=== PATIENT | female | born 1950 | race African-American/Black ===

== ENCOUNTER 2018-02-16 14:34 | Observation (INO) ==
[2018-02-16] MEDS ORDERED: methylPREDNISolone 125 MG/2 ML VIAL IVP ONE (14:38)
--- NOTE | 2018-02-16 14:40 | Emergency Department Note ---
Disposition Clinical Impression: Chest pain Disposition: Admitted As Inpatient Condition: Good General Adult HPI - General Stated complaint: CP Time Seen by Provider: 02/16/18 14:38 Nursing Notes Reviewed: Yes Vital Signs Reviewed: Yes - Related Data Home Medications Medication Instructions Recorded Confirmed ALPRAZolam [Xanax 1 MG Tablet] 1 mg PO TID PRN 02/16/18 02/16/18 Albuterol Neb [Proventil Neb] 2.5 mg IH Q4H PRN 02/16/18 02/16/18 Albuterol Sulfate [Proair Hfa] 2 puff IH Q4H PRN 02/16/18 02/16/18 Budesonide/Formoterol 160/4.5 2 puff IH BID 02/16/18 02/16/18 [Symbicort 160/4.5] Cetirizine HCl [Zyrtec] 10 mg PO DAILY PRN 02/16/18 02/16/18 Levothyroxine [Synthroid] 112 mcg PO 0630 02/16/18 02/16/18 Montelukast [Singulair] 10 mg PO DAILY 02/16/18 02/16/18 Omeprazole [PriLOSEC] 40 mg PO DAILY 02/16/18 02/16/18 Pravastatin Sodium [Pravachol] 40 mg PO HS 02/16/18 02/16/18 SUMAtriptan succinate [Imitrex] 50 mg PO Q2H PRN 02/16/18 02/16/18 Sertraline [Zoloft] 200 mg PO DAILY 02/16/18 02/16/18 Spironolactone [Aldactone] 25 mg PO DAILY 02/16/18 02/16/18 Vit A/Vit C/Vit E/Zinc/Copper 1 tab PO DAILY 02/16/18 02/16/18 [Preservision Areds Tablet] Allergies Allergy/AdvReac Type Severity Reaction Status Date / Time No Known Allergies Allergy Verified 06/18/15 08:04 Past Medical History - Past Medical History Medical history: Reports: arthritis, asthma, GERD, thyroid disease Surgical history: Reports: breast surgery Psychiatric history: Reports: anxiety - Social History Smoking Status: Former smoker Smokeless Tobacco Status: No Alcohol use: Reports: none Drug use: Reports: none Course Vital Signs Temperature 98.0 F 02/16/18 14:40 Pulse Rate 78 02/16/18 14:40 Respiratory Rate 18 02/16/18 14:40 Blood Pressure 140/71 02/16/18 14:40 O2 Sat by Pulse Oximetry 100 02/16/18 14:40 Temperature 97.9 F 02/16/18 18:58 Pulse Rate 68 02/16/18 18:58 Respiratory Rate 17 02/16/18 18:58 Blood Pressure 155/77 02/16/18 18:58 O2 Sat by Pulse Oximetry 98 02/16/18 18:58 Oxygen Delivery Oxygen Delivery Room Air Medical Decision Making - MDM Narrative Medical decision making narrative: This documentation is done with the assistance of Dragon dictation. Despite efforts made to ensure accuracy, there may be inaccuracies in indian blanket weaver or spelling and typographical errors. Patient presents today after having heartburn she says which she typically gets. She said that then she started having an asthma attack. They called medics like started her on breathing treatment and she is feeling better she several of her wheezing. We will do a cardiac workup on her determine if she needs another breathing treatment started on some steroids and reassess. She is in agreement with this plan. 1554 hrs.: Patient's chest x-rays back labs are back doing better remembering for chest pain rule out ACS. She is in agreement with this plan. Chest X-Ray 02/16/18 14:38 IMPRESSION: No acute process. D/ / Tiago Cotton MD / Tiago Cotton MD Interpreting Provider: Tiago Cotton MD - Lab Data Result diagrams: 02/16/18 15:07 02/16/18 15:07 Lab Results 02/16/18 02/16/18 Range/Units 15:07 15:07 WBC 6.0 (4.3-11.1) K/mcL RBC 4.21 (3.82-4.97) M/mcL Hgb 12.1 (11.5-15.4) g/dL Hct 36.3 (35.3-44.9) % MCV 86.2 (83.0-100.0) fL MCH 28.7 (28.0-33.3) pg MCHC 33.3 (31.6-35.5) g/dL RDW 14.1 (11.5-14.5) % Plt Count 184 (140-400) K/mcL MPV 9.7 (9.4-12.4) fL Immature Gran % 0.2 (0-4) % Seg Neutrophils % 29.4 % Lymphocytes % 60.0 % Monocytes % 8.7 % Eosinophils % 1.2 % Basophils % 0.5 % Neutrophils # 1.8 (1.6-8.9) K/mcL Lymphocytes # 3.6 (0.6-4.6) K/mcL Monocytes # 0.5 (0.0-1.3) K/mcL Eosinophils # 0.1 (0.0-0.6) K/mcL Basophils # 0.0 (0.0-0.2) K/mcL Sodium 141 (136-145) mEq/L Potassium 3.4 L (3.5-5.1) mEq/L Chloride 110 H (98-107) mEq/L Carbon Dioxide 23 (23-29) mEq/L BUN 13 (8-23) mg/dL Creatinine 0.84 (0.60-1.20) mg/dL Est GFR ( Amer) > 60 (> 60) Est GFR (Non-Af Amer) > 60 (> 60) BUN/Creatinine Ratio 15 (6-26) Glucose 99 (70-105) mg/dL Calculated Osmolality 292 (280-300) Calcium 9.5 (8.6-10.3) mg/dL Total Bilirubin 0.3 (0.3-1.0) mg/dL AST 23 (13-39) Units/L ALT 15 (7-52) Units/L Alkaline Phosphatase 72 (34-104) Units/L Troponin I < 0.03 (< 0.04) ng/mL Serum Total Protein 7.1 (6.4-8.9) g/dL Albumin 4.2 (3.5-5.7) g/dL Globulin 2.9 (2.4-3.5) g/dL Albumin/Globulin Ratio 1.4 (1.1-2.2) Attestation Statement - Attestation Attestation: I examined this patient and my medical decision-making was reviewed with the Resident Physician. I agree with the documented findings, disposition and treatment plan as described except to the extent set forth below. Patient seen and evaluated on arrival with EMS and Dr. Traore, I agree with her evaluation and treatment plan, I supervised the care the patient's stay.
[2018-02-16] MEDS ORDERED: Ondansetron 4 MG/2 ML VIAL IVP ONE (14:50)
[2018-02-16] MEDS: GI Cocktail 40 ML EACH PO ONE (15:16)
[2018-02-16 15:31] LABS: Basophils % 0.5 %; Eosinophils # 0.1 K/mcL (0.0-0.6); Eosinophils % 1.2 %; Hematocrit 36.3 % (35.3-44.9); Hemoglobin 12.1 g/dL (11.5-15.4); Immature Granulocytes % 0.2 % (0-4); Lymphocytes # 3.6 K/mcL (0.6-4.6); Mean Corpuscular HGB Conc 33.3 g/dL (31.6-35.5); Mean Corpuscular Hemoglobin 28.7 pg (28.0-33.3); Mean Corpuscular Volume 86.2 fL (83.0-100.0); Mean Platelet Volume 9.7 fL (9.4-12.4); Monocytes # 0.5 K/mcL (0.0-1.3); Monocytes % 8.7 %; Neutrophils # 1.8 K/mcL (1.6-8.9); Platelet Count 184 K/mcL (140-400); Red Blood Count 4.21 M/mcL (3.82-4.97); Red Cell Distribution Width 14.1 % (11.5-14.5); Segmented Neutrophils % 29.4 %
[2018-02-16 15:44] LABS: Alanine Aminotransferase 15 Units/L (7-52); Albumin 4.2 g/dL (3.5-5.7); Albumin/Globulin Ratio 1.4 (1.1-2.2); Alkaline Phosphatase 72 Units/L (34-104); Aspartate Amino Transferase 23 Units/L (13-39); BUN/Creatinine Ratio 15 (6-26); Bilirubin,Total 0.3 mg/dL (0.3-1.0); Blood Urea Nitrogen 13 mg/dL (8-23); Calcium 9.5 mg/dL (8.6-10.3); Carbon Dioxide 23 mEq/L (23-29); Chloride 110 mEq/L (98-107); Globulin 2.9 g/dL (2.4-3.5); Glucose 99 mg/dL (70-105); Osmolality,Calculated 292 (280-300); Potassium 3.4 mEq/L (3.5-5.1); Sodium 141 mEq/L (136-145); Total Protein 7.1 g/dL (6.4-8.9); Troponin I < 0.03 ng/mL (< 0.04); eGFR For African Americans > 60 (> 60); eGFR For Non-African Americans > 60 (> 60)
--- NOTE | 2018-02-16 15:45 | Emergency Department Note ---
Disposition Clinical Impression: Chest pain Qualifiers: Chest pain type: unspecified Qualified Code(s): R07.9 - Chest pain, unspecified Disposition: Admitted As Inpatient Condition: Good Referrals: Milad Enciso MD [Primary Care Provider] - Time of Disposition: 16:36 Chest Pain HPI - General Chief Complaint: ED Chest Pain Stated Complaint: CP Time Seen by Provider: 02/16/18 14:38 Source: patient, EMS Limitations: no limitations Vital Signs Reviewed: Yes Nursing Notes Reviewed: Yes - History of Present Illness HPI Narrative: Female patient complaining of excessive burping. Started having chest pain earlier today. Woke up with a headache. This subsequently went away. After she took a nap she woke up nauseated and broke burping more. Did have one episode of emesis. No fevers or chills. Does have a aching sensation in the center of her chest. No radiation. No shortness of breath. Severity scale (1-10): 8 - Related Data Home Medications Medication Instructions Recorded Confirmed ALPRAZolam [Xanax 1 MG Tablet] 1 mg PO TID PRN 02/16/18 02/16/18 Albuterol Neb [Proventil Neb] 2.5 mg IH Q4H PRN 02/16/18 02/16/18 Albuterol Sulfate [Proair Hfa] 2 puff IH Q4H PRN 02/16/18 02/16/18 Budesonide/Formoterol 160/4.5 2 puff IH BID 02/16/18 02/16/18 [Symbicort 160/4.5] Cetirizine HCl [Zyrtec] 10 mg PO DAILY PRN 02/16/18 02/16/18 Levothyroxine [Synthroid] 112 mcg PO 0630 02/16/18 02/16/18 Montelukast [Singulair] 10 mg PO DAILY 02/16/18 02/16/18 Omeprazole [PriLOSEC] 40 mg PO DAILY 02/16/18 02/16/18 Pravastatin Sodium [Pravachol] 40 mg PO HS 02/16/18 02/16/18 SUMAtriptan succinate [Imitrex] 50 mg PO Q2H PRN 02/16/18 02/16/18 Sertraline [Zoloft] 200 mg PO DAILY 02/16/18 02/16/18 Spironolactone [Aldactone] 25 mg PO DAILY 02/16/18 02/16/18 Vit A/Vit C/Vit E/Zinc/Copper 1 tab PO DAILY 02/16/18 02/16/18 [Preservision Areds Tablet] Allergies Allergy/AdvReac Type Severity Reaction Status Date / Time No Known Allergies Allergy Verified 06/18/15 08:04 All systems ED: reviewed and negative except as stated. Constitutional: Denies: fever, chills ENT ED: Denies: congestion Cardiovascular: Reports: chest pain (Aching sensation in the center of her chest.). Denies: palpitations, syncope Respiratory: Reports: wheezes (Prior to arrival. After vomiting she had an episode of wheezing she believes is associated with her asthma.). Denies: cough , dyspnea Gastrointestinal: Reports: nausea, vomiting (One episode earlier today). Denies : abdominal pain, diarrhea, hematemesis, melena, hematochezia Genitourinary: Denies: urgency, dysuria, frequency, hematuria Musculoskeletal: Denies: back pain, neck pain Integumentary: Denies: rash, abrasion Neurological: Denies: headache, weakness Chest Pain PMH - Past Medical History Medical history: Reports: arthritis, asthma, GERD, thyroid disease Surgical history: Reports: breast surgery Psychiatric history: Reports: anxiety - Social History Smoking Status: Former smoker Alcohol use: Reports: none Drug use: Reports: none Physical Exam - General Limitations: no limitations General appearance: alert, in no apparent distress - Head Head exam: atraumatic, normocephalic, normal inspection - Eye Eye exam: Present: normal appearance, PERRL, EOMI - ENT ENT exam: normal exam, normal oropharynx, mucous membranes moist - Neck Neck exam: Present: normal inspection, full ROM, trachea midline - Chest Chest inspection: Present: normal inspection, symmetric chest wall rise - Respiratory Respiratory exam: Present: normal lung sounds bilaterally. Absent: respiratory distress, accessory muscle use - Cardiovascular Cardiovascular exam: Present: regular rate, normal rhythm, normal heart sounds - Abdominal Exam Abdominal exam: Present: soft, Non-Tender. Absent: tenderness, distention, guarding, rigidity, organomegaly - Extremities Exam Extremities exam: Present: normal inspection, full ROM, normal capillary refill. Absent: tenderness, pedal edema - Back Exam Back exam: Present: normal inspection, full ROM. Absent: tenderness, CVA tenderness (R), CVA tenderness (L) - Neurological Exam Neurological exam: Present: alert, oriented X3 - Psychiatric Psychiatric exam: Present: normal affect, normal mood - Skin Skin exam: Present: warm, dry, intact, normal color - Other Other exam information: Patient burping excessively during exam. Course Course Narrative: Female patient presenting to emergency by me complaining of waking up this morning with a headache. She states that she went into her job and started having excessive burping. She states she came home and took a nap just anterior to the headache. When she woke up she was nauseated and began to vomit. Began to burp. She does have a endoscopy scheduled for this ongoing abdominal discomfort however she had to cancel it recently. She states that she has an aching sensation in the center of her chest. She is excessively burping during my exam. She states that after she woke up and she had an episode of emesis she then also began to have shortness of breath. She states she does have asthma and the systolic an asthma attack. She was given one albuterol treatment in route. States that this helped her breathing. She still complains of this sensation in her chest of an ache. She states that she has been told several times that she has an abnormal EKG and that she has had to have further testing done however she has never had a cardiac catheter. She states she is not a smoker. Patient EKG shows no signs of acute ischemia. Her lung sounds are clear at this time and she does not appear to be in respiratory distress currently. Her abdomen is soft and nontender on exam. She has no signs of edema to her extremities. I am concerned for ACS in this patient. Her workup showed no abnormalities. She states that her pain has decreased at this time. We will admit patient for further ACS workup. - Consultations Consultation #1: Chelsi LOO accepted Pt in stable condition. Time: 16:36 Vital Signs Temperature 98.0 F 02/16/18 14:40 Pulse Rate 78 02/16/18 14:40 Respiratory Rate 18 02/16/18 14:40 Blood Pressure 140/71 02/16/18 14:40 O2 Sat by Pulse Oximetry 100 02/16/18 14:40 Temperature 98.0 F 02/16/18 14:40 Pulse Rate 78 02/16/18 14:40 Respiratory Rate 18 02/16/18 14:40 Blood Pressure 140/71 02/16/18 14:40 O2 Sat by Pulse Oximetry 100 02/16/18 14:40 Oxygen Delivery Oxygen Delivery Room Air Chest Pain - Medical Records Medical records reviewed: Yes I reviewed the patient's medical records. - Lab Data Lab results reviewed: Yes I reviewed the patient's lab results. Result diagrams: 02/16/18 15:07 02/16/18 15:07 Lab Results 02/16/18 02/16/18 Range/Units 15:07 15:07 WBC 6.0 (4.3-11.1) K/mcL RBC 4.21 (3.82-4.97) M/mcL Hgb 12.1 (11.5-15.4) g/dL Hct 36.3 (35.3-44.9) % MCV 86.2 (83.0-100.0) fL MCH 28.7 (28.0-33.3) pg MCHC 33.3 (31.6-35.5) g/dL RDW 14.1 (11.5-14.5) % Plt Count 184 (140-400) K/mcL MPV 9.7 (9.4-12.4) fL Immature Gran % 0.2 (0-4) % Seg Neutrophils % 29.4 % Lymphocytes % 60.0 % Monocytes % 8.7 % Eosinophils % 1.2 % Basophils % 0.5 % Neutrophils # 1.8 (1.6-8.9) K/mcL Lymphocytes # 3.6 (0.6-4.6) K/mcL Monocytes # 0.5 (0.0-1.3) K/mcL Eosinophils # 0.1 (0.0-0.6) K/mcL Basophils # 0.0 (0.0-0.2) K/mcL Sodium 141 (136-145) mEq/L Potassium 3.4 L (3.5-5.1) mEq/L Chloride 110 H (98-107) mEq/L Carbon Dioxide 23 (23-29) mEq/L BUN 13 (8-23) mg/dL Creatinine 0.84 (0.60-1.20) mg/dL Est GFR ( Amer) > 60 (> 60) Est GFR (Non-Af Amer) > 60 (> 60) BUN/Creatinine Ratio 15 (6-26) Glucose 99 (70-105) mg/dL Calculated Osmolality 292 (280-300) Calcium 9.5 (8.6-10.3) mg/dL Total Bilirubin 0.3 (0.3-1.0) mg/dL AST 23 (13-39) Units/L ALT 15 (7-52) Units/L Alkaline Phosphatase 72 (34-104) Units/L Troponin I < 0.03 (< 0.04) ng/mL Serum Total Protein 7.1 (6.4-8.9) g/dL Albumin 4.2 (3.5-5.7) g/dL Globulin 2.9 (2.4-3.5) g/dL Albumin/Globulin Ratio 1.4 (1.1-2.2) - Radiology Data Radiology results reviewed: Yes I reviewed the patient's radiology results. Chest X-Ray 02/16/18 14:38 IMPRESSION: No acute process. D/ / Tiago Cotton MD / Tiago Cotton MD Interpreting Provider: Tiago Cotton MD - EKG Data EKG attestation: Yes I reviewed and interpreted this EKG. EKG results narrative: Normal sinus rhythm at a rate 82. TX interval is 173. Respiration is 77. QT is 388. QTC is 426. No signs of acute ischemia. No significant change from previous EKG dated 2015. Heart Score - Score History: Moderately Suspicious EKG: Non Specific repolarisation Disturbance Age: Greater than 65 Risk Factors: No risk factors known Troponin: Less than normal limit HEART Score Total: 4
[2018-02-16] MEDS ORDERED: Aspirin 81 MG TAB.CHEW PO ONE (16:33)
[2018-02-16] MEDS ORDERED: Naloxone 0.4 MG/ML INJ IVP PRN (18:00)
--- NOTE | 2018-02-16 18:02 | Internal Med History&Physical ---
Date of Encounter: 02/16/18 Time of Encounter: 17:58 Internal Medicine - H&P: HPI Chief complaint: I couldn't breath Admitted From: Home Plans for Post Hospital Care: Home History of present illness: Ms. Barrera is a 67 year old female with PMH COPD, hypothyroidism, C. difficile, anxiety and asthma who presented to [facility] on 02/16 says 18 with complaints of shortness of breath. She was placed in observation status for further workup and treatment. Information obtained from chart review and patient report. Patient reports history of migraines, had a headache that was consistent with her migraines last night. This morning and felt her normal self went to work. Says she came home and had another headache Shehawa Benavides taken out. Woke up with severe nausea and belching and a large emesis. She continued to have excessive belching which she thinks led into her asthma attack. Says she became acutely shortness of breath with diffuse wheezing therefore EMS was called. She also reports an episode of chest tightness during asthma tach that was worse with bending over, chest tightness did not radiate and nothing made better or worse. She feels a little shaky and jittery all my exam which she thinks is secondary to steroids and albuterol otherwise overall improved. No chest pain, no SOB on my exam. Past Med Surg Social Fam HX - Past Medical History Medical history: arthritis, asthma, GERD, thyroid disease Psychiatric history: anxiety - Past Surgical History Surgical History: breast surgery - Social History Smoking Status: Former smoker Smokeless Tobacco Status: No Alcohol use: none Drug use: none - Additional Family History Additional family history: Reviewed with patient and noncontributory Internal Medicine - H&P: Meds ALPRAZolam [Xanax 1 MG Tablet] 1 mg PO TID PRN 02/16/18 [History] Albuterol Neb [Proventil Neb] 2.5 mg IH Q4H PRN 02/16/18 [History] Albuterol Sulfate [Proair Hfa] 2 puff IH Q4H PRN 02/16/18 [History] Budesonide/Formoterol 160/4.5 [Symbicort 160/4.5] 2 puff IH BID 02/16/18 [ History] Cetirizine HCl [Zyrtec] 10 mg PO DAILY PRN 02/16/18 [History] Levothyroxine [Synthroid] 112 mcg PO 0630 02/16/18 [History] Montelukast [Singulair] 10 mg PO DAILY 02/16/18 [History] Omeprazole [PriLOSEC] 40 mg PO DAILY 02/16/18 [History] Pravastatin Sodium [Pravachol] 40 mg PO HS 02/16/18 [History] SUMAtriptan succinate [Imitrex] 50 mg PO Q2H PRN 02/16/18 [History] Sertraline [Zoloft] 200 mg PO DAILY 02/16/18 [History] Spironolactone [Aldactone] 25 mg PO DAILY 02/16/18 [History] Vit A/Vit C/Vit E/Zinc/Copper [Preservision Areds Tablet] 1 tab PO DAILY [History] 3 Allergy/AdvReac Type Severity Reaction Status Date / Time No Known Allergies Allergy Verified 06/18/15 08:04 All Systems PM: A 10-system review of systems was performed and is negative for pertinent findings except as documented above in the HPI. - Constitutional Constitutional: no chills, no fever(s), no night sweats - EENT Eyes: no change in vision, no discharge, no pain, no photophobia Ears: no ear discharge, no ear pain, no tinnitus Nose, mouth and throat: no dysphagia, no nasal discharge, no neck pain, no sore throat - Cardiovascular Cardiovascular ROS IM: chest pain, palpitations, no diaphoresis, no dyspnea, no lightheadedness, no syncope - Respiratory Respiratory: wheezing, no cough, no dyspnea, no excessive phlegm production - Gastrointestinal Gastrointestinal: belching, vomiting, no abdominal pain, no diarrhea, no hematemesis, no hematochezia, no melena, no nausea - Genitourinary Genitourinary: no change in urinary stream, no dysuria, no flank pain, no hematuria - Musculoskeletal Musculoskeletal ROS IM: no numbness, no tingling - Integumentary Integumentary IM: no rash, no unusual bruising - Neurological Neurological ROS: no confusion, no convulsions, no focal weakness, no numbness, no tingling, no tremor(s) - Hematologic/Lymphatic Hematologic/Lymphatic: no easy bruising - Constitutional Vitals: Temp Pulse Resp BP Pulse Ox 98.0 F 70 16 140/71 95 02/16/18 14:40 02/16/18 16:51 02/16/18 16:51 02/16/18 16:51 02/16/18 16:51 General appearance: Present: A&O X 3, pleasant, no acute distress - Head Head exam: Present: atraumatic, normocephalic - Eye Eye exam: Present: PERRL, conjuntiva pink, sclera anicteric Pupils: Present: PERRL - Neck Neck exam general surgery: Present: supple, trachea midline. Absent: lymphadenopathy - Respiratory Respiratory exam: Present: CTAB. Absent: accessory muscle use, rales, rhonchi, wheezes - Cardiovascular Cardiovascular exam: Present: RRR, +S1, +S2. Absent: diastolic murmur, gallop, rubs, systolic murmur - GI/Abdominal GI/Abdominal exam: Present: normal bowel sounds, soft, no peritoneal signs. Absent: distended, tenderness - Extremities Exam Extremities exam: Present: warm, radial pulses palpable and symmetrical. Absent : calf tenderness, cyanotic, pedal edema - Neurological Exam Neurological exam: Present: CN II-XII intact, oriented X3, no focal deficits. Absent: pronater drift, facial droop, speech deficit - Skin Skin exam: Present: dry, intact Internal Med - H&P Results - Labs CBC & Chem 7: 02/16/18 15:07 02/16/18 15:07 - Assessment and plan (1) GERD (gastroesophageal reflux disease) Current Visit: Yes Status: Acute Assessment and plan: per hx with associated excessive belching and chest pain. Recently seen GI outpatient who is planning EGD. Suspect symptoms are secondary to GI source versus cardiac and she likely benefit from EGD.. Clear liquid diet for now, NPO at midnight. IV PPI. GI consult Qualifiers: Esophagitis presence: esophagitis presence not specified Qualified Code(s) : K21.9 - Gastro-esophageal reflux disease without esophagitis (2) Chest pain Current Visit: Yes Status: Acute Assessment and plan: presented with episode of chest tightness that occurred during asthma attack. With GI complaints as noted above. Initial troponin negative, EKG without acute ST changes. No known CAD. She does not want stress test at this time. Continue to cycle troponin check echo. Reassess and consider stress test if chest pain recurs. Qualifiers: Chest pain type: unspecified Qualified Code(s): R07.9 - Chest pain, unspecified (3) C. difficile diarrhea Current Visit: Yes Status: Acute Assessment and plan: patient reports multiple episodes of C.diff. With one episode of loose stool on day of arrival. GI panel pending. (4) Asthma Current Visit: Yes Status: Acute Assessment and plan: per hx. With acute exacerbation prior to arrival. Patient suspect secondary to acid reflux. Symptoms improved with IV steroids and bronchodilators in ED. No wheezing noted on exam, no shortness of breath. Hold on further steroids. Continue PRN bronchodilators Qualifiers: Asthma severity: unspecified severity Asthma persistence: intermittent Asthma complication type: with acute exacerbation Qualified Code(s): J45.21 - Mild intermittent asthma with (acute) exacerbation (5) Hypothyroidism Current Visit: Yes Status: Acute Assessment and plan: per hx. Cont home levothyroxine Qualifiers: Hypothyroidism type: acquired Qualified Code(s): E03.9 - Hypothyroidism, unspecified (6) DVT prophylaxis Current Visit: Yes Status: Acute Assessment and plan: heparin - Time Spent With Patient Total time spent is greater than 50% in coordination of care (as documented) at patient's floor/unit and/or counseling patient:
[2018-02-16] MEDS ORDERED: Albuterol 2.5 MG/3 ML NEBULIZER IH PRN (18:03)
[2018-02-16] MEDS: Pantoprazole 40 MG VIAL IVP SCH (19:54)
[2018-02-16] MEDS ORDERED: Acetaminophen 325 MG TABLET PO PRN (20:07)
[2018-02-16] MEDS ORDERED: *HR* HYDROcodone/Acet 5/325 mg TABLET PO PRN (20:07)
[2018-02-16] MEDS: ALPRAZolam 1 MG TABLET PO PRN (20:48)
[2018-02-16] MEDS: *HR* Heparin 5,000 UNIT/ML VIAL SQ SCH (20:49)
[2018-02-16] MEDS: Budesonide/Formoterol 160/4.5 MDI IH SCH (21:41)
[2018-02-17 03:31] LABS: Hematocrit 35.5 % (35.3-44.9); Hemoglobin 11.9 g/dL (11.5-15.4); Mean Corpuscular HGB Conc 33.5 g/dL (31.6-35.5); Mean Corpuscular Hemoglobin 29.2 pg (28.0-33.3); Mean Corpuscular Volume 87.2 fL (83.0-100.0); Platelet Count 178 K/mcL (140-400); Red Blood Count 4.07 M/mcL (3.82-4.97); Red Cell Distribution Width 14.4 % (11.5-14.5)
[2018-02-17 03:49] LABS: BUN/Creatinine Ratio 14 (6-26); Blood Urea Nitrogen 11 mg/dL (8-23); Calcium 9.4 mg/dL (8.6-10.3); Carbon Dioxide 21 mEq/L (23-29); Chloride 108 mEq/L (98-107); Glucose 131 mg/dL (70-105); Osmolality,Calculated 287 (280-300); Potassium 4.3 mEq/L (3.5-5.1); Sodium 138 mEq/L (136-145); eGFR For African Americans > 60 (> 60); eGFR For Non-African Americans > 60 (> 60)
[2018-02-17] MEDS: *HR* Heparin 5,000 UNIT/ML VIAL SQ SCH ×3 (05:56→21:51)
[2018-02-17] MEDS: Budesonide/Formoterol 160/4.5 MDI IH SCH ×2 (07:33→21:34)
--- NOTE | 2018-02-17 09:44 | Internal Med Progress Note ---
<Dianna Sauer - Last Filed: 02/17/18 18:17> Date of Encounter: 02/17/18 Time of Encounter: 09:24 - Assessment and plan (1) Chest pain Current Visit: Yes Status: Acute Assessment and plan: Chest pain rule out for ACS, no known CAD Chest tightness occurred during asthma attack and has h/o GERD--Doubt cardiac cause for chest pain CXR negative for acute processes Tropoonins negative x3 EKG without acute ST changes Echo shows EF 60% with mild diastolic dysfunction Continue to monitor Qualifiers: Chest pain type: unspecified Qualified Code(s): R07.9 - Chest pain, unspecified (2) Asthma Current Visit: Yes Status: Acute Assessment and plan: Acute exacerbation prior to arrival, possibly secondary to acid reflux Symptoms improved with IV steroids and bronchodilators in ED CXR show no acute cardiopulmonary processes No wheezing or shortness of breath on exam Continue PRN bronchodilators Qualifiers: Asthma severity: unspecified severity Asthma persistence: intermittent Asthma complication type: with acute exacerbation Qualified Code(s): J45.21 - Mild intermittent asthma with (acute) exacerbation (3) GERD (gastroesophageal reflux disease) Current Visit: Yes Status: Acute Assessment and plan: Seen by GI as outpatient--GI had planned to do EGD as outpatient Suspect symptoms are most likely related to GI source rather than cardiac Pt to have EGD and colonoscopy tomorrow Clear liquid diet for now, NPO at midnight Continue IV PPI GI consulted, recommendations appreciated Qualifiers: Esophagitis presence: esophagitis presence not specified Qualified Code(s) : K21.9 - Gastro-esophageal reflux disease without esophagitis (4) Hypothyroidism Current Visit: Yes Status: Acute Assessment and plan: Cont home levothyroxine Qualifiers: Hypothyroidism type: acquired Qualified Code(s): E03.9 - Hypothyroidism, unspecified (5) H/O Clostridium difficile infection Current Visit: Yes Status: Acute Assessment and plan: Patient reporting h/o multiple episodes of C.diff One episode of loose stool on day of arrival, however pt states she has had problems with diarrhea intermittently for many years Outpatient stool studies normal (6) DVT prophylaxis Current Visit: Yes Status: Acute - Time Spent With Patient Total time spent is greater than 50% in coordination of care (as documented) at patient's floor/unit and/or counseling patient: - Subjective Interval history: Seen and examined at bedside this morning, she is lying comfortably in bed. Complains of headache and would like to have something to eat, states she's been NPO for 48 hours. Additionally, c/o continued belching. She denies fevers, chills, chest pain, shortness of breath, abdominal pain. - Constitutional Vitals: Temp Pulse Resp BP Pulse Ox 98.2 F 71 15 122/73 97 02/17/18 06:35 02/17/18 06:35 02/17/18 03:15 02/17/18 06:35 02/17/18 06:35 General appearance: Present: A&O X 3, pleasant, no acute distress Exam: General: AAOx3, No acute distress, resting comfortably in bed HEENT: head normocephalic/atraumatic, EOMI, PERRL, moist mucus membranes, Neck: Supple, FROM Cardio: RRR, no murmurs, +S1/S2 Pulm: CTAB, no wheezing, rhonchi, rales. Normal respiratory effort. Abdomen: soft, nontender, BS+ Extremities: No LE edema, no calf tenderness, no cyanosis Neuro: AAOx3, no focal deficit, mentation intact, CN II-XII grossly intact, moves extremities spontaneously MSK: Strength 5/5 throughout, no visible deformities Skin: clean, dry, intact, no visible rashes Psych: Appropriate mood and affect. Answers questions appropriately. Cooperative with exam Internal Medicine: Result - Labs CBC & Chem 7: 02/17/18 02:57 02/17/18 02:57 Labs: Short CBC 02/17/18 Range/Units 02:57 WBC 5.7 (4.3-11.1) K/mcL Hgb 11.9 (11.5-15.4) g/dL Hct 35.5 (35.3-44.9) % Plt Count 178 (140-400) K/mcL BMP 02/17/18 02:57 Sodium 138 Potassium 4.3 D Chloride 108 H Carbon Dioxide 21 L BUN 11 Creatinine 0.77 Glucose 131 H Calcium 9.4 Cardiac Enzymes 02/16/18 02/17/18 Range/Units 21:16 02:57 Troponin I < 0.03 < 0.03 (< 0.04) ng/mL Consult Discharge Plan - Plan Referrals: Milad Enciso MD [Primary Care Provider] - 02/28/18 1:30 pm <Jp Goff - Last Filed: 02/17/18 20:38> Date of Encounter: 02/17/18 - Assessment and plan (1) Chest pain Current Visit: Yes Status: Acute Qualifiers: Chest pain type: unspecified Qualified Code(s): R07.9 - Chest pain, unspecified (2) DVT prophylaxis Current Visit: Yes Status: Acute (3) Hypothyroidism Current Visit: Yes Status: Acute Qualifiers: Hypothyroidism type: acquired Qualified Code(s): E03.9 - Hypothyroidism, unspecified (4) Asthma Current Visit: Yes Status: Acute Qualifiers: Asthma severity: unspecified severity Asthma persistence: intermittent Asthma complication type: with acute exacerbation Qualified Code(s): J45.21 - Mild intermittent asthma with (acute) exacerbation (5) GERD (gastroesophageal reflux disease) Current Visit: Yes Status: Acute Qualifiers: Esophagitis presence: esophagitis presence not specified Qualified Code(s) : K21.9 - Gastro-esophageal reflux disease without esophagitis (6) C. difficile diarrhea Current Visit: Yes Status: Acute - Time Spent With Patient Total time spent is greater than 50% in coordination of care (as documented) at patient's floor/unit and/or counseling patient: - Constitutional Vitals: Temp Pulse Resp BP Pulse Ox 97.8 F 67 18 120/82 98 02/17/18 14:53 02/17/18 14:53 02/17/18 14:53 02/17/18 14:53 02/17/18 14:53 Internal Medicine: Result - Labs CBC & Chem 7: 02/17/18 02:57 02/17/18 02:57 Labs: Short CBC 02/17/18 Range/Units 02:57 WBC 5.7 (4.3-11.1) K/mcL Hgb 11.9 (11.5-15.4) g/dL Hct 35.5 (35.3-44.9) % Plt Count 178 (140-400) K/mcL BMP 02/17/18 02:57 Sodium 138 Potassium 4.3 D Chloride 108 H Carbon Dioxide 21 L BUN 11 Creatinine 0.77 Glucose 131 H Calcium 9.4 Cardiac Enzymes 02/16/18 02/17/18 Range/Units 21:16 02:57 Troponin I < 0.03 < 0.03 (< 0.04) ng/mL - Impressions Impressions Echocardiogram 02/17/18 18:03 Impressions: LVEF 60%. Normal LV chamber size, wall thickness and function. Mild left ventricular diastolic dysfunction. Normal right ventricular structure and function. Mild aortic regurgitation. Mild mitral regurgitation. Mild tricuspid regurgitation. No pulmonary hypertension. Left Ventricular Wall Motion: Rest Echo Findings All wall segments showed normal motion. Findings: Study Quality * Technically adequate exam. ECG Findings * Normal sinus rhythm. Left Ventricle * LVEF 60%. * Normal LV chamber size, wall thickness and function. * Mild left ventricular diastolic dysfunction. Right Ventricle * Normal right ventricular structure and function. Left Atrium * Moderately dilated left atrium. Right Atrium * Mildly dilated right atrium. Interatrial Septum * Interatrial septum not well evaluated. Aortic Valve * Trileaflet aortic valve. * Mild aortic regurgitation. * No aortic stenosis. Mitral Valve * Mildly thickened mitral valve leaflets, somewhat rheumatic appearing in apical views. * Mild mitral regurgitation. * Turbulent inflow noted, but no significant mitral stenosis. Tricuspid Valve * Normal tricuspid valve structure. * Mild tricuspid regurgitation. * No pulmonary hypertension. Pulmonic Valve * Normal pulmonic valve structure and function. * Trace pulmonic regurgitation. Aorta * Normally sized aortic root. Pericardium * The pericardium appears normal. IVC * Normal IVC dimensions and inspiratory collapse. Pulmonary Artery * Normal visualized portions of the main pulmonary artery. - Attending Attestation I performed a history and physical examination of the patient and discussed his/ her management with the resident. I reviewed the residents note and agree with the documented findings and plan of care.
[2018-02-17] MEDS: Spironolactone 25 MG TABLET PO SCH (10:19)
[2018-02-17] MEDS: Pantoprazole 40 MG VIAL IVP SCH (10:27)
--- NOTE | 2018-02-17 13:13 | Gastroenterology Consult Note ---
<Edith Salmon M - Last Filed: 02/17/18 13:10> Date of Encounter: 02/17/18 Time of Encounter: 10:15 - Assessment and plan (1) Chest pain Current Visit: Yes Status: Acute Assessment and plan: Pt admitted with chest pain. She also had nausea and vomiting. She has long history of GERD and was scheduled for outpatient EGD. Continue PPI. Will plan for EGD tomorrow to rule out esophagitis/gastritis as cause of chest pain. Qualifiers: Chest pain type: unspecified Qualified Code(s): R07.9 - Chest pain, unspecified (2) Diarrhea Current Visit: Yes Status: Acute Assessment and plan: Pt states is on and off for many years, denies bleeding. Stool studies as an outpatient were normal. Will plan for colonoscopy tomorrow to rule out microcytic causes of diarrhea. - Time Spent With Patient Total time spent is greater than 50% in coordination of care (as documented) at patient's floor/unit and/or counseling patient: GI History of Present Illness - Data of Consult Patient: known to practice within the last 3 years Consult date: 02/17/18 Requesting Physician: Ani Fabian CNP - Consult Narrative Reason for consult: chest pain, nausea and vomiting History of present illness: Ms. Barrera is a 67 year old female with PMH COPD, hypothyroidism, C. difficile, anxiety and asthma who presented to [facility] on 02/16 says 18 with complaints of shortness of breath. She reports having a migraine, laid down to take a nap. She woke up with severe nausea and belching and a large emesis. She continued to have excessive belching which she thinks led into her asthma attack. Says she became acutely shortness of breath with diffuse wheezing therefore EMS was called. She also reports an episode of chest tightness during asthma that that was worse with bending over, chest tightness did not radiate and nothing made better or worse. She currently denies chest pain, or SOB. She denies abdominal pain, she has continued diarrhea on and off. She was seen in the office in December 2017 for GERD, belcing and diarrhea, SIBO, EGD and colonoscopy were ordered. SIBO remains pending. Stool studies were ordered, GI panel not done due to formed stool, fecal calprotectin, pancreatic elastase and O&P were negative. COLON; 06/08 diverticulosis EGD none nsAIDS: denies Anticoagulants: none Past Med Surg Social Fam HX - Past Medical History Medical history: arthritis, asthma, GERD, thyroid disease Psychiatric history: anxiety - Past Surgical History Surgical History: breast surgery - Social History Smoking Status: Former smoker Smokeless Tobacco Status: No Alcohol use: none Drug use: none Review of Systems: GI: as per CHIGN[facility] LAGOON GENERAL: denies fever, has some chills EYES: denies yellow discoloration ENT: denies pain with swallowing or difficulty swallowing CARDIO: denies chest pain, palpitations RESP: No Shortness of breath with exertion : denies change in color of urine NEURO: denies any weakness HEME: Denies any bruising MS: denies joint pain, joint swelling or back pain. DERM: denies rash or itching PSYCH: history of anxiety - Constitutional Vitals: Temp Pulse Resp BP Pulse Ox 98.1 F 58 18 154/78 98 02/17/18 10:48 02/17/18 10:48 02/17/18 10:48 02/17/18 10:48 02/17/18 10:48 Exam: CONSTITUTIONAL:~alert, no acute distress.~HEAD:~normocephalic.~EYES:~no jaundice.~NECK:~no obvious swelling.~HEART:~regular rate and rhythm, no murmurs. ~LUNGS:~bilateral fair air entry.~ABDOMEN:~non distended, soft, non tender, no masses palpable, no organomegaly.~RECTAL EXAM:~Deferred.~EXTREMITIES:~no clubbing, cyanosis or edema.~SKIN:~no stigmata of chronic liver disease.~ NEUROLOGIC:~no obvious focal defect.~~~~ Results - Labs CBC & Chem 7: 02/17/18 02:57 02/17/18 02:57 Labs: Last Result Calcium 9.4 mg/dL (8.6-10.3) 02/17/18 02:57 Troponin I < 0.03 ng/mL (< 0.04) 02/17/18 02:57 Entire Visit Hgb 11.9 g/dL (11.5-15.4) 02/17/18 02:57 Hct 35.5 % (35.3-44.9) 02/17/18 02:57 Total Bilirubin 0.3 mg/dL (0.3-1.0) 02/16/18 15:07 AST 23 Units/L (13-39) 02/16/18 15:07 ALT 15 Units/L (7-52) 02/16/18 15:07 - Impressions Impressions Echocardiogram 02/17/18 18:03 Impressions: LVEF 60%. Normal LV chamber size, wall thickness and function. Mild left ventricular diastolic dysfunction. Normal right ventricular structure and function. Mild aortic regurgitation. Mild mitral regurgitation. Mild tricuspid regurgitation. No pulmonary hypertension. Left Ventricular Wall Motion: Rest Echo Findings All wall segments showed normal motion. Findings: Study Quality * Technically adequate exam. ECG Findings * Normal sinus rhythm. Left Ventricle * LVEF 60%. * Normal LV chamber size, wall thickness and function. * Mild left ventricular diastolic dysfunction. Right Ventricle * Normal right ventricular structure and function. Left Atrium * Moderately dilated left atrium. Right Atrium * Mildly dilated right atrium. Interatrial Septum * Interatrial septum not well evaluated. Aortic Valve * Trileaflet aortic valve. * Mild aortic regurgitation. * No aortic stenosis. Mitral Valve * Mildly thickened mitral valve leaflets, somewhat rheumatic appearing in apical views. * Mild mitral regurgitation. * Turbulent inflow noted, but no significant mitral stenosis. Tricuspid Valve * Normal tricuspid valve structure. * Mild tricuspid regurgitation. * No pulmonary hypertension. Pulmonic Valve * Normal pulmonic valve structure and function. * Trace pulmonic regurgitation. Aorta * Normally sized aortic root. Pericardium * The pericardium appears normal. IVC * Normal IVC dimensions and inspiratory collapse. Pulmonary Artery * Normal visualized portions of the main pulmonary artery. Consult Discharge Plan - Plan Referrals: Milad Enciso MD [Primary Care Provider] - 02/28/18 1:30 pm <Vani Brooks - Last Filed: 02/17/18 18:47> Date of Encounter: 02/17/18 Time of Encounter: 18:45 - Time Spent With Patient Total time spent is greater than 50% in coordination of care (as documented) at patient's floor/unit and/or counseling patient: GI History of Present Illness - Data of Consult Requesting Physician: Ani Fabian CNP - Consult Narrative History of present illness: Ms. Barrera is a 67 year old female - Constitutional Vitals: Temp Pulse Resp BP Pulse Ox 97.8 F 67 18 120/82 98 04/26/18 14:53 02/17/18 14:53 02/17/18 14:53 02/17/18 14:53 02/17/18 14:53 Results - Labs CBC & Chem 7: 02/17/18 02:57 02/17/18 02:57 Labs: Last Result Calcium 9.4 mg/dL (8.6-10.3) 02/17/18 02:57 Troponin I < 0.03 ng/mL (< 0.04) 02/17/18 02:57 Entire Visit Hgb 11.9 g/dL (11.5-15.4) 02/17/18 02:57 Hct 35.5 % (35.3-44.9) 02/17/18 02:57 Total Bilirubin 0.3 mg/dL (0.3-1.0) 02/16/18 15:07 AST 23 Units/L (13-39) 02/16/18 15:07 ALT 15 Units/L (7-52) 02/16/18 15:07 - Impressions Impressions Echocardiogram 02/17/18 18:03 Impressions: LVEF 60%. Normal LV chamber size, wall thickness and function. Mild left ventricular diastolic dysfunction. Normal right ventricular structure and function. Mild aortic regurgitation. Mild mitral regurgitation. Mild tricuspid regurgitation. No pulmonary hypertension. Left Ventricular Wall Motion: Rest Echo Findings All wall segments showed normal motion. Findings: Study Quality * Technically adequate exam. ECG Findings * Normal sinus rhythm. Left Ventricle * LVEF 60%. * Normal LV chamber size, wall thickness and function. * Mild left ventricular diastolic dysfunction. Right Ventricle * Normal right ventricular structure and function. Left Atrium * Moderately dilated left atrium. Right Atrium * Mildly dilated right atrium. Interatrial Septum * Interatrial septum not well evaluated. Aortic Valve * Trileaflet aortic valve. * Mild aortic regurgitation. * No aortic stenosis. Mitral Valve * Mildly thickened mitral valve leaflets, somewhat rheumatic appearing in apical views. * Mild mitral regurgitation. * Turbulent inflow noted, but no significant mitral stenosis. Tricuspid Valve * Normal tricuspid valve structure. * Mild tricuspid regurgitation. * No pulmonary hypertension. Pulmonic Valve * Normal pulmonic valve structure and function. * Trace pulmonic regurgitation. Aorta * Normally sized aortic root. Pericardium * The pericardium appears normal. IVC * Normal IVC dimensions and inspiratory collapse. Pulmonary Artery * Normal visualized portions of the main pulmonary artery. - Attending Attestation I have personally performed a face to face evaluation on this patient. I have reviewed and agree with the care plan. History and Exam by me shows: Patient seen patient with GERD and chronic diarrhea. Was seen in GI office was supposed to have scopes done as outpatient. Now that she is here she will have scopes done tomorrow to make sure she does not have any colitis such as microscopic colitis
[2018-02-17] MEDS: ALPRAZolam 1 MG TABLET PO PRN ×2 (13:16→23:31)
[2018-02-17] MEDS ORDERED: SODIUM CHLORIDE/NAHCO3/KCL/PEG 4,000 ML SOLN.RECON PO ONE (17:00)
[2018-02-17] MEDS ORDERED: *HR* Promethazine 25 MG/ML VIAL IVP PRN (21:20)
[2018-02-18] MEDS: *HR* Heparin 5,000 UNIT/ML VIAL SQ SCH ×3 (05:31→22:43)
[2018-02-18] MEDS: Budesonide/Formoterol 160/4.5 MDI IH SCH ×2 (07:24→20:28)
--- NOTE | 2018-02-18 07:26 | Anesthesia Evaluation PreOp ---
<Isaiah Abad - Last Filed: 02/18/18 07:24> Date of Encounter: 02/18/18 Time of Encounter: 07:24 - Past History Planned Operation: EGD/Colonoscopy Cardiac History: Denies any Significant Hx Pulmonary History: Asthma Other Medical History: Thyroid, GERD Anesthesia History: Past Anesthesia (Breast Sx) Alcohol Use: none Drug use: none Medications and Allergies ALPRAZolam [Xanax 1 MG Tablet] 1 mg PO TID PRN 02/16/18 [History] Albuterol Neb [Proventil Neb] 2.5 mg IH Q4H PRN 02/16/18 [History] Albuterol Sulfate [Proair Hfa] 2 puff IH Q4H PRN 02/16/18 [History] Budesonide/Formoterol 160/4.5 [Symbicort 160/4.5] 2 puff IH BID 02/16/18 [ History] Cetirizine HCl [Zyrtec] 10 mg PO DAILY PRN 02/16/18 [History] Levothyroxine [Synthroid] 112 mcg PO 0630 02/16/18 [History] Montelukast [Singulair] 10 mg PO DAILY 02/16/18 [History] Omeprazole [PriLOSEC] 40 mg PO DAILY 02/16/18 [History] Pravastatin Sodium [Pravachol] 40 mg PO HS 02/16/18 [History] SUMAtriptan succinate [Imitrex] 50 mg PO Q2H PRN 02/16/18 [History] Sertraline [Zoloft] 200 mg PO DAILY 02/16/18 [History] Spironolactone [Aldactone] 25 mg PO DAILY 02/16/18 [History] Vit A/Vit C/Vit E/Zinc/Copper [Preservision Areds Tablet] 1 tab PO DAILY [History] 3 Allergy/AdvReac Type Severity Reaction Status Date / Time No Known Allergies Allergy Verified 06/18/15 08:04 - Meds/Allergy Pre-op Review Medications Reviewed: Yes Allergies Reviewed: Yes Beta Blockers on Current Med List: No Anesthesia Results - Labs 02/17/18 02:57 02/17/18 02:57 Echocardiogram Name: Shonna Barrera Date of Study: 02/17/2018 EV/EV echocardiogram Impressions: LVEF 60%. Normal LV chamber size, wall thickness and function. Mild left ventricular diastolic dysfunction. Normal right ventricular structure and function. Mild aortic regurgitation. Mild mitral regurgitation. Mild tricuspid regurgitation. No pulmonary hypertension. - Imaging EKG: report reviewed (SINUS RHYTHM LOW QRS VOLTAGE IN PRECORDIAL LEADS [QRS DEFLECTION < 1.0 mV IN CHEST LEADS] POSSIBLE INFERIOR MYOCARDIAL INFARCTION) Anesthesia Exam Vital Signs/O2 Sat, Most Current Temp Pulse Resp BP Pulse Ox 98.1 F 60 15 113/67 98 02/18/18 04:20 02/18/18 04:20 02/18/18 04:20 02/18/18 04:20 02/18/18 04:20 NPO (# of Hours): > 8 hrs Pain Scale: 0 <Chadwick Madrigal - Last Filed: 02/18/18 08:21> Date of Encounter: 02/18/18 Time of Encounter: 08:21 Anesthesia Results - Labs 02/18/18 07:31 02/18/18 07:31 Anesthesia Exam - Cardiac Rhythm: Regular - Pulmonary Breath Sounds: bilateral Clear Anesthesia Assess/Plan ASA Score: 3 Modified [place] Scale for Level of Consciousness: Cooperative, oriented, and tranquil Anesthetic Plan: MAC Monitoring Plan: Standard Monitors Recovery Plan: Other Anes Supervising Prov Stmt: Patient informed and consented. Risks, benefits, and alternatives discussed. Patient wishes to proceed.
[2018-02-18] MEDS ORDERED: Propofol 500 MG/50 ML INFUS..BTL ONE (07:33)
[2018-02-18 08:05] LABS: Hemoglobin 11.5 g/dL (11.5-15.4); Mean Corpuscular HGB Conc 32.9 g/dL (31.6-35.5); Mean Corpuscular Hemoglobin 29.6 pg (28.0-33.3); Mean Platelet Volume 9.9 fL (9.4-12.4); Platelet Count 179 K/mcL (140-400); Red Blood Count 3.89 M/mcL (3.82-4.97); Red Cell Distribution Width 14.6 % (11.5-14.5)
[2018-02-18 08:09] LABS: BUN/Creatinine Ratio 16 (6-26); Blood Urea Nitrogen 14 mg/dL (8-23); Calcium 9.2 mg/dL (8.6-10.3); Carbon Dioxide 25 mEq/L (23-29); Chloride 106 mEq/L (98-107); Glucose 82 mg/dL (70-105); Osmolality,Calculated 290 (280-300); Sodium 140 mEq/L (136-145); eGFR For African Americans > 60 (> 60); eGFR For Non-African Americans > 60 (> 60)
[2018-02-18] MEDS ORDERED: Tetracaine/Benzocaine/Butamben 200MG/SPRAY (100SPY/BOT) MM ONE (08:33)
--- NOTE | 2018-02-18 08:37 | Internal Med Progress Note ---
Date of Encounter: 02/18/18 Time of Encounter: 10:30 - Assessment and plan (1) GERD (gastroesophageal reflux disease) Current Visit: Yes Status: Acute Assessment and plan: Suspect her chest pain was due to GI source rather than cardiac Added carafate, continue PPI GI consulted, recommendations appreciated EGD with biopsy report and pathology pending--findings, most likely, can be managed as outpatient Anticipate d/c tomorrow Qualifiers: Esophagitis presence: esophagitis presence not specified Qualified Code(s) : K21.9 - Gastro-esophageal reflux disease without esophagitis (2) Chest pain Current Visit: Yes Status: Acute Assessment and plan: Chest pain rule out for ACS, no known CAD Chest tightness occurred during asthma attack and has h/o GERD--Doubt cardiac cause for chest pain CXR negative for acute processes Tropoonins negative x3 EKG without acute ST changes Echo shows EF 60% with mild diastolic dysfunction EGD findings pending, but anticipate d/c tomorrow Qualifiers: Chest pain type: unspecified Qualified Code(s): R07.9 - Chest pain, unspecified (3) Asthma Current Visit: Yes Status: Acute Assessment and plan: CXR show no acute cardiopulmonary processes No wheezing or shortness of breath on exam Continue PRN bronchodilators, scheduled Symbicort, and Singulair Qualifiers: Asthma severity: unspecified severity Asthma persistence: intermittent Asthma complication type: with acute exacerbation Qualified Code(s): J45.21 - Mild intermittent asthma with (acute) exacerbation (4) Hypothyroidism Current Visit: Yes Status: Acute Assessment and plan: Cont home levothyroxine Qualifiers: Hypothyroidism type: acquired Qualified Code(s): E03.9 - Hypothyroidism, unspecified (5) C. difficile diarrhea Current Visit: Yes Status: Inactive Assessment and plan: Patient reporting h/o multiple episodes of C.diff One episode of loose stool on day of arrival, however pt states she has had problems with diarrhea intermittently for many years Outpatient stool studies normal (6) DVT prophylaxis Current Visit: Yes Status: Acute Assessment and plan: Heparin 5000 units SQ Q8H - Time Spent With Patient Total time spent is greater than 50% in coordination of care (as documented) at patient's floor/unit and/or counseling patient: - Subjective Interval history: Seen and examined at bedside this morning, reports she feels good today and had her EGD and colonoscopy this morning. Does have continued belching. She denies fevers, chills, chest pain, shortness of breath, abdominal pain. - Constitutional Vitals: Temp Pulse Resp BP Pulse Ox 98.2 F 69 16 132/57 98 02/18/18 08:20 02/18/18 08:20 02/18/18 08:20 02/18/18 08:20 02/18/18 08:20 General appearance: Present: A&O X 3, pleasant, no acute distress Exam: General: Well-nourished, well-developed, No acute distress HEENT: head normocephalic/atraumatic, EOMI, PERRL, moist mucus membranes, Neck: Supple, no lymphadenopathy Cardio: RRR, no murmurs, +S1/S2 Pulm: CTAB, no wheezing, Normal respiratory effort. Abdomen: soft, nontender, BS+, no rebound, rigidity, guarding, distention Extremities: No LE edema, no cyanosis, no clubbing Back: normal appearance on inspection Neuro: AAOx3, no focal deficit, mentation intact, moves extremities spontaneously MSK: Strength 5/5 throughout, no visible deformities Skin: clean, dry, intact, no visible rashes Psych: Appropriate mood and affect. Answers questions appropriately. Cooperative with exam Internal Medicine: Result - Labs CBC & Chem 7: 02/18/18 07:31 02/18/18 07:31 Labs: Short CBC 02/18/18 Range/Units 07:31 WBC 7.9 (4.3-11.1) K/mcL Hgb 11.5 (11.5-15.4) g/dL Hct 35.0 L (35.3-44.9) % Plt Count 179 (140-400) K/mcL [facility] 02/18/18 07:31 Sodium 140 Potassium 4.0 Chloride 106 Carbon Dioxide 25 BUN 14 Creatinine 0.88 Glucose 82 Calcium 9.2 - Impressions Impressions Echocardiogram 02/17/18 18:03 Impressions: LVEF 60%. Normal LV chamber size, wall thickness and function. Mild left ventricular diastolic dysfunction. Normal right ventricular structure and function. Mild aortic regurgitation. Mild mitral regurgitation. Mild tricuspid regurgitation. No pulmonary hypertension. Left Ventricular Wall Motion: Rest Echo Findings All wall segments showed normal motion. Findings: Study Quality * Technically adequate exam. ECG Findings * Normal sinus rhythm. Left Ventricle * LVEF 60%. * Normal LV chamber size, wall thickness and function. * Mild left ventricular diastolic dysfunction. Right Ventricle * Normal right ventricular structure and function. Left Atrium * Moderately dilated left atrium. Right Atrium * Mildly dilated right atrium. Interatrial Septum * Interatrial septum not well evaluated. Aortic Valve * Trileaflet aortic valve. * Mild aortic regurgitation. * No aortic stenosis. Mitral Valve * Mildly thickened mitral valve leaflets, somewhat rheumatic appearing in apical views. * Mild mitral regurgitation. * Turbulent inflow noted, but no significant mitral stenosis. Tricuspid Valve * Normal tricuspid valve structure. * Mild tricuspid regurgitation. * No pulmonary hypertension. Pulmonic Valve * Normal pulmonic valve structure and function. * Trace pulmonic regurgitation. Aorta * Normally sized aortic root. Pericardium * The pericardium appears normal. IVC * Normal IVC dimensions and inspiratory collapse. Pulmonary Artery * Normal visualized portions of the main pulmonary artery. Consult Discharge Plan - Plan Referrals: Milad Enciso MD [Primary Care Provider] - 02/28/18 1:30 pm
--- NOTE | 2018-02-18 09:04 | Anesthesia Evaluation Post Op ---
Date of Encounter: 02/18/18 Time of Encounter: 09:02 - Vital Signs Vital Signs: 3 Vital Signs Time 900 BP 118/56 Pulse 65 Resp 20 O2 Sat 98 - Lungs Lungs: Clear Ascult./Percussion - Airway Airway: Non-obstructed - Cardiovascular Regular Rate - Mental Status Mental Status: Alert & Oriented, Answers Appropriately - Nausea Vomiting Nausea Vomiting: Not Present - Hydration Hydration: NPO, Has not voided - Discharge PostOp Status: Transfer Patient to floor
[2018-02-18] MEDS: Spironolactone 25 MG TABLET PO SCH (09:35)
[2018-02-18] MEDS: Pantoprazole 40 MG VIAL IVP SCH (09:35)
[2018-02-18] MEDS: ALPRAZolam 1 MG TABLET PO PRN (19:33)
[2018-02-19] MEDS: *HR* Heparin 5,000 UNIT/ML VIAL SQ SCH (05:23)
[2018-02-19 05:56] LABS: Hematocrit 37.2 % (35.3-44.9); Hemoglobin 12.2 g/dL (11.5-15.4); Mean Corpuscular HGB Conc 32.8 g/dL (31.6-35.5); Mean Corpuscular Hemoglobin 29.7 pg (28.0-33.3); Mean Corpuscular Volume 90.5 fL (83.0-100.0); Platelet Count 190 K/mcL (140-400); Red Blood Count 4.11 M/mcL (3.82-4.97); Red Cell Distribution Width 14.4 % (11.5-14.5)
[2018-02-19 06:15] LABS: BUN/Creatinine Ratio 17 (6-26); Blood Urea Nitrogen 18 mg/dL (8-23); Carbon Dioxide 25 mEq/L (23-29); Chloride 103 mEq/L (98-107); Glucose 100 mg/dL (70-105); Osmolality,Calculated 282 (280-300); Potassium 3.7 mEq/L (3.5-5.1); Sodium 135 mEq/L (136-145); eGFR For African Americans > 60 (> 60); eGFR For Non-African Americans 52 (> 60)
[2018-02-19 07:29] VITALS: BP 111/69
[2018-02-19] MEDS ORDERED: Sucralfate 1 GM TABLET PO SCH (07:30)
[2018-02-19] MEDS: Budesonide/Formoterol 160/4.5 MDI IH SCH (08:01)
[2018-02-19] MEDS: Spironolactone 25 MG TABLET PO SCH (08:26)
[2018-02-19] MEDS: Pantoprazole 40 MG VIAL IVP SCH (08:29)
--- NOTE | 2018-02-19 09:47 | Discharge Summary ---
- NOTES TO OUTPATIENT PROVIDER Notes to Outpatient Provider: Recheck BMP in 3-5 days. Sodium was borderline low and creatinine increased to 1.06 (baseline was 0.88). I discussed those findings that these are minor changes and should improve with holding spironolactone and resuming diet. We had discussion about ruling out serious causes of her symptoms and that the remainder of workup can be done as outpatient. Orders not resulted at time of discharge: Pending orders 02/18/18 08:51 Surgical Pathology [PTH] Routine Date of Encounter: 02/19/18 Time of Encounter: 09:45 - Discharge Diagnosis (1) Chest pain Priority: Primary Status: Resolved Assessment and Plan: Secondary to GERD and gastritis. She will be discharged to continue ppi and start carafate also discussed diet to avoid irritating gerd and gastritis Qualifiers: Chest pain type: unspecified Qualified Code(s): R07.9 - Chest pain, unspecified (2) DVT prophylaxis Priority: Secondary Status: Acute Assessment and Plan: Heparin 5000 units SQ Q8H (3) Hypothyroidism Priority: Secondary Status: Acute Qualifiers: Hypothyroidism type: acquired Qualified Code(s): E03.9 - Hypothyroidism, unspecified (4) Asthma Priority: Secondary Status: Acute Qualifiers: Asthma severity: unspecified severity Asthma persistence: intermittent Asthma complication type: with acute exacerbation Qualified Code(s): J45.21 - Mild intermittent asthma with (acute) exacerbation (5) GERD (gastroesophageal reflux disease) Priority: Secondary Status: Chronic Qualifiers: Esophagitis presence: esophagitis presence not specified Qualified Code(s) : K21.9 - Gastro-esophageal reflux disease without esophagitis Hospital course: Ms. Barrera is a 67 year old female with PMH COPD, hypothyroidism, C. difficile in the past, anxiety and asthma who presented to [facility] on 02/16 says 18 with complaints of shortness of breath. She was placed in observation status for further workup and treatment. Patient reports history of migraines, had a headache that was consistent with her migraines last night. This morning and felt her normal self went to work. Says she came home and had another headache. Woke up with severe nausea and belching and a large emesis. She continued to have excessive belching which she thinks led into her asthma attack. Says she became acutely shortness of breath with diffuse wheezing therefore EMS was called. She also reports an episode of chest tightness during asthma attack was worse with bending over, chest tightness did not radiate and nothing made better or worse. She feels a little shaky and jittery all my exam which she thinks is secondary to steroids and albuterol otherwise overall improved. She did not have any further CP on admission. Patient was observed for ACS rule out. She had troponin cycled and were negative. EKG showed no acute ST/T wave changes. She had echocardiogram done that showed normal function and ejection fraction, outside of mild AR, MR, and TR. She had an EGD done on 02/18 that showed gastritis preliminary. She was continued on ppi and started on carafate. Patient states no chest pain but belching still persists. Less likely symptoms of ACS or pulmonary etiology, likely gastritis/GERD related. Patient was discharged home in stable condition. Borderline increase in creatinine and borderline decrease in sodium , likely from being NPO and on diueretic. Recommend repeat BMP in 3 days and holding spironolactone for few days. - Time Spent with Patient Total time spent providing and/or coordinating discharge services: - Discharge Medications Prescriptions: Sucralfate [Carafate] 1 gm PO QIDAC #30 tablet Home Medications: ALPRAZolam [Xanax 1 MG Tablet] 1 mg PO TID PRN 02/16/18 [History] Albuterol Neb [Proventil Neb] 2.5 mg IH Q4H PRN 02/16/18 [History] Albuterol Sulfate [Proair Hfa] 2 puff IH Q4H PRN 02/16/18 [History] Budesonide/Formoterol 160/4.5 [Symbicort 160/4.5] 2 puff IH BID 02/16/18 [ History] Cetirizine HCl [Zyrtec] 10 mg PO DAILY PRN 02/16/18 [History] Levothyroxine [Synthroid] 112 mcg PO 0630 02/16/18 [History] Montelukast [Singulair] 10 mg PO DAILY 02/16/18 [History] Omeprazole [PriLOSEC] 40 mg PO DAILY 02/16/18 [History] Pravastatin Sodium [Pravachol] 40 mg PO HS 02/16/18 [History] SUMAtriptan succinate [Imitrex] 50 mg PO Q2H PRN 02/16/18 [History] Sertraline [Zoloft] 200 mg PO DAILY 02/16/18 [History] Spironolactone [Aldactone] 25 mg PO DAILY 02/16/18 [History] Vit A/Vit C/Vit E/Zinc/Copper [Preservision Areds Tablet] 1 tab PO DAILY [History] Sucralfate [Carafate] 1 gm PO QIDAC #30 tablet 02/19/18 [Rx] Allergies/Adverse Reactions: 3 Allergy/AdvReac Type Severity Reaction Status Date / Time No Known Allergies Allergy Verified 06/18/15 08:04 Date of admission: 02/16/18 17:13 Primary care physician: Milad Enciso MD Consults: 02/16/18 18:47 Consult to Gastroenterology [CONS] Routine Consulting Provider: [facility] Reason for Consult: Acid reflux with excessive belching. Recently seen by GI outpatient. EGD/C scope was planned. Call Completed: Yes 02/16/18 18:51 Consult to Pastoral Services [CONS] Routine Comment: Discharging clinician: Jp Goff - Constitutional Vitals: Temp Pulse Resp BP Pulse Ox 98.1 F 79 15 111/69 98 02/19/18 07:26 02/19/18 07:26 02/19/18 07:26 02/19/18 07:26 02/19/18 07:26 General appearance: Present: A&O X 3, pleasant, no acute distress - Head Head exam: Present: atraumatic, normocephalic - Eye Eye exam: Present: PERRL, conjuntiva pink, sclera anicteric Pupils: Present: PERRL - Neck Neck exam general surgery: Present: supple, trachea midline. Absent: lymphadenopathy - Respiratory Respiratory exam: Present: CTAB. Absent: accessory muscle use, rales, rhonchi, wheezes - Cardiovascular Cardiovascular exam: Present: RRR, +S1, +S2. Absent: diastolic murmur, gallop, rubs, systolic murmur - GI/Abdominal GI/Abdominal exam: Present: normal bowel sounds, soft, no peritoneal signs. Absent: distended, tenderness - Extremities Exam Extremities exam: Present: warm, radial pulses palpable and symmetrical. Absent : calf tenderness, cyanotic, pedal edema - Neurological Exam Neurological exam: Present: CN II-XII intact, oriented X3, no focal deficits. Absent: pronater drift, facial droop, speech deficit - Skin Skin exam: Present: dry, intact - Patient Status Disposition: Home, Self-Care Condition: Good Functional capacity at discharge: independent ambulation Overall status at discharge: patient is back to baseline - Discharge Instructions Follow Up With: Milad Enciso MD [Primary Care Provider] - 02/28/18 1:30 pm Forms: ED Satisfaction Letter - Diet and Activity Activity: increase activity as tolerated Diet: advance to your usual diet, other (GERD diet)
--- NOTE | 2018-02-19 16:39 | Electrocardiograph Report ---
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
== END 2018-02-19 10:45 | disposition home or self-care (01) ==
LOC: EMEROO 14:34 → 3ANU 14:34
PROVIDERS: ADMIT Student in an Organized Health Care Education/Training Program; ATTEND Registered Nurse
PROC: ENDOCBX (2018-02-18 08:00)
PROC: ENDOEBX (2018-02-18 08:00)